=== PATIENT | female | born 1945 | race Caucasian/White ===

== ENCOUNTER 2024-04-12 14:48 | Outpatient (CLI) | payer MEDICARE | END 2024-04-12 14:49 | disposition home or self-care (01) | LOC: CSHULT 14:48 | PROVIDERS: ATTEND Internal Medicine Hematology & Oncology | DX: C50.811 Malignant neoplasm of overlapping sites of right female breast (principal); R30.0 Dysuria; D70.8 Other neutropenia; Z79.60 Long term (current) use of unspecified immunomodulators and immunosuppressants; I08.1 Rheumatic disorders of both mitral and tricuspid valves | CPT/HCPCS: 93306 ==

== ENCOUNTER 2024-12-24 14:36 | Outpatient (CLI) | payer MEDICARE | END 2024-12-24 14:37 | disposition home or self-care (01) | LOC: CSHULT 14:36 | PROVIDERS: ATTEND Internal Medicine Hematology & Oncology | DX: C50.811 Malignant neoplasm of overlapping sites of right female breast (principal); R30.0 Dysuria; D70.8 Other neutropenia; I34.0 Nonrheumatic mitral (valve) insufficiency | CPT/HCPCS: 93306 ==